=== PATIENT | female | born 1965 | race Hispanic/Latino ===

== ENCOUNTER 2017-10-15 23:22 | Emergency (ER) | payer OTHER ==
[~2017-10-15] VITALS: Ht 167.6 cm; Wt 77.1 kg
[2017-10-16 00:19] VITALS: BP 158/74
[2017-10-16] MEDS ORDERED: BROMFED DM COU118 ML PO (00:19)
[2017-10-16] MEDS ORDERED: NASONEX17 GM (00:19)
[2017-10-16] MEDS ORDERED: LIDOCAINE1 EA PO (00:19)
== END 2017-10-16 00:22 | disposition home or self-care (01) ==
LOC: FSED 23:22
DX: J02.9 Acute pharyngitis, unspecified (principal); R05 Cough
CPT/HCPCS: 83518; 99282